=== PATIENT | female | born 1955 | race Caucasian/White ===

== ENCOUNTER → 2023-07-07 13:54 | Outpatient (BNVA) | payer OTHER, SELFPAY | PROVIDERS: PCP Internal Medicine; Visit Provider Surgery ==

== ENCOUNTER 2023-07-20 08:30 | Outpatient (AMB) | payer OTHER, SELFPAY ==
--- NOTE | 2023-07-20 12:29 | A.OFFVIS_ITS ---
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 BMI 37.5 Allergies morphine Allergy (Intermediate, Verified 07/20/23 12:29) Hallucinations Sulfa (Sulfonamide Antibiotics) Adverse Reaction (Severe, Verified 07/20/23 12:29) Anaphylaxis ezetimibe Adverse Reaction (Intermediate, Verified 07/20/23 12:29) Diarrhea Medication List - Last Reconciled 07/20/23 by Oskar Sharpe MD albuterol sulfate 90 mcg/actuation inhalation albuterol sulfate mg inhalation atorvastatin 40 mg PO DAILY bupropion HCl 150 mg PO QAM cyanocobalamin (vitamin B-12) 5,000 mcg PO DAILY diclofenac-misoprostol 50-200 mg-mcg tabs PO ferrous sulfate (FeroSul) 325 mg PO DAILY lamotrigine 200 mg PO DAILY lamotrigine 100 mg PO DAILY levothyroxine 50 mcg PO DAILY methotrexate sodium mg PO metoprolol tartrate 25 mg PO DAILY multivitamin 1 tab PO DAILY omeprazole 40 mg PO BID pregabalin 150 mg PO BID quetiapine mg PO HPI 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 BMI 37.5 HPI Details Start time: 12.24pm, End time: 1.24pm ?I spent 45 minutes speaking with the patient on the phone plus an additional 15 minutes reviewing and updating records for a total of 60 minutes HPI Comments History of Present Illness Details Previous weight loss efforts: LSG (Heighest: 297lbs, lowest: 172lbs) Wakes up: 6am, Sleeps: 10pm Breakfast: 7am (toast and eggs and avocado) Lunch: 1pm (salad with tuna, soups, Dinner: 7pm (meatloaf, pasta) Snacks: 10am (crackers and cheese), 3pm (peanut butter with celery, cheese and crackers), 9pm (saltine crackers) Exercise: has marcello Fluids: Coffee espresso x3/d (heavy cream), tea rare(2-3 cups at night), soda: none, juice: none, ETOH: rare PFSH Medical History (Updated 07/20/23 @ 13:07 by Oskar Sharpe MD) Neuropathy Hypothyroidism GERD (gastroesophageal reflux disease) Anxiety Depression Asthma Psoriatic arthritis Hyperlipidemia Hypertension Sleep apnea treated with continuous positive airway pressure (CPAP) Obesity Surgical History (Updated 07/19/23 @ 08:37 by Olga Wang [facility]) Hx of vitrectomy Hx of blepharoplasty Hx of abdominal surgery Hx of breast reduction, elective Hx of spinal surgery History of gastric surgery Hx of discectomy Hx of hysterectomy, total History of lumpectomy History of bladder suspension procedure Hx of section History of facial surgery Social History (Updated 07/19/23 @ 08:51 by Olga Wang CMA) Patient Tobacco Use Status: Never used Tobacco Assessment & Plan Assessment & Plan (1) Obesity: Code(s): E66.9 - Obesity, unspecified Qualifiers: Obesity type: due to excess calories Obesity classification: adult class 2 (BMI 35 - 39.9) Serious obesity comorbidity presence: with serious comorbidity Body mass index: BMI 37.0-37.9 Qualified Code(s): E66.01 - Morbid (severe) obesity due to excess calories; Z68.37 - Body mass index [BMI] 37.0- 37.9, adult Plan: 1.? Plan for lap sleeve gastrectomy. If diaphragmatic or ventral hernias are present at time of surgery, these will be repaired laparoscopically as well. Risks and complications were discussed in detail including possible conversion to an open procedure, anastomotic leak, bleeding requiring transfusion, small bowel obstruction, , DVT and pulmonary embolism, cardiac, or pulmonary complications, as mcc complications such as anastomotic ulcer, insufficient weight loss and vitamin deficiencies. I emphasized the importance of close follow-up, adherence to instructions and good communication. 2. Nutritional counseling. Start with 2 CELEBRATE REBUILD protein (buy at [facility] [employer] [facility]) shakes (ONE scoop EACH in 8oz low fat unsweetened almond milk each) at 7am-9am and 10am-12pm, 2 protein bars (CELEBRATE protein bars, buy at [facility] [employer]) at 1pm-3pm, 4pm-6pm, dinner at 7pm (6 forks of protein and 6 forks of salad/vegetables). If you feel hungry after dinner, please do another HALF protein bar after dinner at 9pm-10pm. So you do 2 protein shakes, 2-2.5 protein bars and one meal per day. Meal to include lean meat (beef, fish, pork, turkey, chicken), or maltese yogurt, or egg whites, or beans with a salad with olive oil and fruits (berries, pears, apples, kiwi). Avoid salt, breads, potatoes, rice, pasta, desserts. 3. Each shake would be drunk slowly, like coffee in a period of 2 hours. 4. Cut each bar in 4 pieces and eat each piece in 30min ?to make each bar last 2 hours. 5. I emphasized the importance of measuring accurately the food portion and measure it when serving the food in plate 6. The meal portions include 6 full-size forks of meat and 6 full-size forks of salad. You always eat the meat portion but you can replace up to 3 forks for salad/vegetables with rice, potatoes or pasta, or a fruit ?if you like. The less you do it the better weight loss will be. 7. One full-size fork is what it can be scooped on the fork without falling aside and not what can be bit with the fork. Use regular forks like those you find in a typical restaurant. 8.? Please send me weight measurements as soon as possible and then once a week. Always include your diet and exercise plan. 9. Start using the [employer] aerobic exercise machine, tracking calories with a goal of 300 calories per day, daily. Goal is to burn 2000 calories per week on exercise, which means either 300 calories daily, or 400 calories 5 days per week, or 500 calories 4 days per week, or 650 calories 3 days per week. You can also split the session in 2 sessions of 150 calories per session, twice per day. 10. Goal is to lose at least 1.5-2lbs per week 11. Goal to lose 10% of your weight before surgery, which is about 24lbs. Ultimate weight goal: 215lbs before surgery 12. Please follow the diet plan exactly without any change. If you don't like something about the plan or you feel hungry you need to communicate with me so I can help you revise the plan. You should not change the plan yourself. Orders: Orders Insulin Today E03.9 - Hypothyroidism, unspecified, E66.9 - Obesity, unspecified, E78.5 - Hyperlipidemia, unspecified, I10 - Essential (primary) hypertension, J45.909 - Unspecified asthma, uncomplicated, K21.9 - Gastro-esophageal reflux disease without esophagitis, L40.50 - Arthropathic psoriasis, unspecified, Z68.37 - Body mass index [BMI] 37.0-37.9, adult IRON PROFILE Today E03.9 - Hypothyroidism, unspecified, E66.9 - Obesity, unspecified, E78.5 - Hyperlipidemia, unspecified, I10 - Essential (primary) hypertension, J45.909 - Unspecified asthma, uncomplicated, K21.9 - Gastro- esophageal reflux disease without esophagitis, L40.50 - Arthropathic psoriasis, unspecified, Z68.37 - Body mass index [BMI] 37.0-37.9, adult Zinc Today E03.9 - Hypothyroidism, unspecified, E66.9 - Obesity, unspecified, E78.5 - Hyperlipidemia, unspecified, I10 - Essential (primary) hypertension, J45.909 - Unspecified asthma, uncomplicated, K21.9 - Gastro-esophageal reflux disease without esophagitis, L40.50 - Arthropathic psoriasis, unspecified, Z68.37 - Body mass index [BMI] 37.0-37.9, adult C Reactive Protein Today E03.9 - Hypothyroidism, unspecified, E66.9 - Obesity, unspecified, E78.5 - Hyperlipidemia, unspecified, I10 - Essential (primary) hypertension, J45.909 - Unspecified asthma, uncomplicated, K21.9 - Gastro- esophageal reflux disease without esophagitis, L40.50 - Arthropathic psoriasis, unspecified, Z68.37 - Body mass index [BMI] 37.0-37.9, adult TSH reflex Free T4 Today E03.9 - Hypothyroidism, unspecified, E66.9 - Obesity, unspecified, E78.5 - Hyperlipidemia, unspecified, I10 - Essential (primary) hypertension, J45.909 - Unspecified asthma, uncomplicated, K21.9 - Gastro- esophageal reflux disease without esophagitis, L40.50 - Arthropathic psoriasis, unspecified, Z68.37 - Body mass index [BMI] 37.0-37.9, adult Vitamin D 25-OH Total Today E03.9 - Hypothyroidism, unspecified, E66.9 - Obesity, unspecified, E78.5 - Hyperlipidemia, unspecified, I10 - Essential (primary) hypertension, J45.909 - Unspecified asthma, uncomplicated, K21.9 - Gastro-esophageal reflux disease without esophagitis, L40.50 - Arthropathic psoriasis, unspecified, Z68.37 - Body mass index [BMI] 37.0-37.9, adult US abdomen comp w elastography Today E03.9 - Hypothyroidism, unspecified, E66.9 - Obesity, unspecified, E78.5 - Hyperlipidemia, unspecified, I10 - Essential (primary) hypertension, J45.909 - Unspecified asthma, uncomplicated, K21.9 - Gastro-esophageal reflux disease without esophagitis, L40.50 - Arthropathic psoriasis, unspecified, Z68.37 - Body mass index [BMI] 37.0-37.9, adult XR chest 2V Today E03.9 - Hypothyroidism, unspecified, E66.9 - Obesity, unspecified, E78.5 - Hyperlipidemia, unspecified, I10 - Essential (primary) hypertension, J45.909 - Unspecified asthma, uncomplicated, K21.9 - Gastro- esophageal reflux disease without esophagitis, L40.50 - Arthropathic psoriasis, unspecified, Z68.37 - Body mass index [BMI] 37.0-37.9, adult ECG 12 lead EKG Today E03.9 - Hypothyroidism, unspecified, E66.9 - Obesity, unspecified, E78.5 - Hyperlipidemia, unspecified, I10 - Essential (primary) hypertension, J45.909 - Unspecified asthma, uncomplicated, K21.9 - Gastro- esophageal reflux disease without esophagitis, L40.50 - Arthropathic psoriasis, unspecified, Z68.37 - Body mass index [BMI] 37.0-37.9, adult FL upper GI w air Today E03.9 - Hypothyroidism, unspecified, E66.9 - Obesity, unspecified, E78.5 - Hyperlipidemia, unspecified, I10 - Essential (primary) hypertension, J45.909 - Unspecified asthma, uncomplicated, K21.9 - Gastro- esophageal reflux disease without esophagitis, L40.50 - Arthropathic psoriasis, unspecified, Z68.37 - Body mass index [BMI] 37.0-37.9, adult Hemoglobin A1c Today E03.9 - Hypothyroidism, unspecified, E66.9 - Obesity, unspecified, E78.5 - Hyperlipidemia, unspecified, I10 - Essential (primary) hyp ertension, J45.909 - Unspecified asthma, uncomplicated, K21.9 - Gastro- esophageal reflux disease without esophagitis, L40.50 - Arthropathic psoriasis, unspecified, Z68.37 - Body mass index [BMI] 37.0-37.9, adult H Pylori Breath Test Today E03.9 - Hypothyroidism, unspecified, E66.9 - Obesity, unspecified, E78.5 - Hyperlipidemia, unspecified, I10 - Essential (primary) hypertension, J45.909 - Unspecified asthma, uncomplicated, K21.9 - Gastro- esophageal reflux disease without esophagitis, L40.50 - Arthropathic psoriasis, unspecified, Z68.37 - Body mass index [BMI] 37.0-37.9, adult Complete Blood Count Auto Diff Today E03.9 - Hypothyroidism, unspecified, E66.9 - Obesity, unspecified, E78.5 - Hyperlipidemia, unspecified, I10 - Essential (primary) hypertension, J45.909 - Unspecified asthma, uncomplicated, K21.9 - Gastro-esophageal reflux disease without esophagitis, L40.50 - Arthropathic psoriasis, unspecified, Z68.37 - Body mass index [BMI] 37.0-37.9, adult Lipid Panel Today E03.9 - Hypothyroidism, unspecified, E66.9 - Obesity, unspecified, E78.5 - Hyperlipidemia, unspecified, I10 - Essential (primary) hypertension, J45.909 - Unspecified asthma, uncomplicated, K21.9 - Gastro- esophageal reflux disease without esophagitis, L40.50 - Arthropathic psoriasis, unspecified, Z68.37 - Body mass index [BMI] 37.0-37.9, adult Comprehensive Met. Panel Today E03.9 - Hypothyroidism, unspecified, E66.9 - Obesity, unspecified, E78.5 - Hyperlipidemia, unspecified, I10 - Essential (primary) hypertension, J45.909 - Unspecified asthma, uncomplicated, K21.9 - Gastro-esophageal reflux disease without esophagitis, L40.50 - Arthropathic psoriasis, unspecified, Z68.37 - Body mass index [BMI] 37.0-37.9, adult Vitamin B12 and Folate Today E03.9 - Hypothyroidism, unspecified, E66.9 - Obesity, unspecified, E78.5 - Hyperlipidemia, unspecified, I10 - Essential (primary) hypertension, J45.909 - Unspecified asthma, uncomplicated, K21.9 - Gastro-esophageal reflux disease without esophagitis, L40.50 - Arthropathic psoriasis, unspecified, Z68.37 - Body mass index [BMI] 37.0-37.9, adult Vitamin B1 Today E03.9 - Hypothyroidism, unspecified, E66.9 - Obesity, unspecified, E78.5 - Hyperlipidemia, unspecified, I10 - Essential (primary) hypertension, J45.909 - Unspecified asthma, uncomplicated, K21.9 - Gastro- esophageal reflux disease without esophagitis, L40.50 - Arthropathic psoriasis, unspecified, Z68.37 - Body mass index [BMI] 37.0-37.9, adult Vitamin A Today E03.9 - Hypothyroidism, unspecified, E66.9 - Obesity, unspecified, E78.5 - Hyperlipidemia, unspecified, I10 - Essential (primary) hypertension, J45.909 - Unspecified asthma, uncomplicated, K21.9 - Gastro- esophageal reflux disease without esophagitis, L40.50 - Arthropathic psoriasis, unspecified, Z68.37 - Body mass index [BMI] 37.0-37.9, adult Ferritin Today E03.9 - Hypothyroidism, unspecified, E66.9 - Obesity, unspecified, E78.5 - Hyperlipidemia, unspecified, I10 - Essential (primary) hypertension, J45.909 - Unspecified asthma, uncomplicated, K21.9 - Gastro- esophageal reflux disease without esophagitis, L40.50 - Arthropathic psoriasis, unspecified, Z68.37 - Body mass index [BMI] 37.0-37.9, adult Referrals Behavioral Health Referral E03.9 - Hypothyroidism, unspecified, E66.9 - Obesity, unspecified, E78.5 - Hyperlipidemia, unspecified, I10 - Essential (primary) hypertension, J45.909 - Unspecified asthma, uncomplicated, K21.9 - Gastro-esophageal reflux disease without esophagitis, L40.50 - Arthropathic psoriasis, unspecified, Z68.37 - Body mass index [BMI] 37.0-37.9, adult Nutrition/Dietitian Referral E03.9 - Hypothyroidism, unspecified, E66.9 - Obesity, unspecified, E78.5 - Hyperlipidemia, unspecified, I10 - Essential (primary) hypertension, J45.909 - Unspecified asthma, uncomplicated, K21.9 - Gastro-esophageal reflux disease without esophagitis, L40.50 - Arthropathic psoriasis, unspecified, Z68.37 - Body mass index [BMI] 37.0-37.9, adult Telehealth Telehealth Location of provider rendering services: practice address Location of patient: address on file Patient Identification confirmed using: Name, : Yes Telehealth method: voice only Patient verbally consented to treatment: Yes Patient verbally consented to billing insurance company: Yes Patient informed of any privacy concerns related to visit: Yes Minutes spent on Phone/Video with Pt.: 60 Coding Level of Care Code Tele [facility] Pt Level 5 (44656) Diagnoses Class 2 severe obesity due to excess calories with serious comorbidity and body mass index (BMI) of 37.0 to 37.9 in adult E66.01; Z68.37 Obesity type: due to excess calories Obesity classification: adult class 2 (BMI 35 - 39.9) Serious obesity comorbidity presence: with serious comorbidity Body mass index: BMI 37.0-37.9 Time Spent (min) 60
[2023-07-20 12:56] VITALS: BMI 37.4
== END 2023-07-20 13:26 | disposition home or self-care (01) ==
LOC: HO.HBS 08:30
PROVIDERS: PCP Internal Medicine; Visit Provider Surgery
DX: E66.01 Morbid (severe) obesity due to excess calories (principal); Z68.37 Body mass index [BMI] 37.0-37.9, adult; Z90.3 Acquired absence of stomach [part of]; Z98.84 Bariatric surgery status
CPT/HCPCS: 99205

== ENCOUNTER → 2023-07-20 08:30 | Outpatient (BNVA) | payer OTHER, SELFPAY | PROVIDERS: PCP Internal Medicine; Visit Provider Surgery ==

== ENCOUNTER 2023-07-21 11:15 | Outpatient (REF) | payer OTHER, SELFPAY ==
--- NOTE | ~2023-07-21 | XR_ITS ---
EXAMINATION: XR CHEST CLINICAL INFORMATION: Obesity, unspecified. COMPARISON: None available. TECHNIQUE: Two views of the chest were obtained. FINDINGS: Surgical clips in the left axilla. Multiple densities, possibly sclerotic bony lesions versus soft tissue calcifications, project over the partially imaged right humeral head. Dedicated views of the right shoulder with attention to the humeral head are recommended for further evaluation. There is no gross pneumothorax. Cervical plate and screws incompletely imaged. Mild right costophrenic angle blunting may represent a small pleural effusion versus pleural thickening. Right perihilar and infrahilar linear and patchy opacities may represent atelectasis/scar, although an infectious/inflammatory process could also be considered in the appropriate clinical setting. XR/XR chest 2V IMPRESSION: 1. Mild right costophrenic angle blunting may represent a small pleural effusion versus pleural thickening. Right perihilar and infrahilar linear and patchy opacities may represent atelectasis/scar, although an infectious/inflammatory process could also be considered in the appropriate clinical setting. 2. Multiple densities, possibly sclerotic bony lesions versus soft tissue calcifications, project over the partially imaged right humeral head. Dedicated views of the right shoulder with attention to the humeral head are recommended for further evaluation. This study was presented today, July 25, 2023, for interpretation. PSA staff will provide results to referring provider at this time.
--- NOTE | 2023-07-21 11:42 | ECG_ITS ---
Test Reason : obesity Blood Pressure : / mmHG Vent. Rate : 065 BPM Atrial Rate : 065 BPM P-R Int : 186 ms QRS Dur : 100 ms QT Int : 402 ms P-R-T Axes : 048 005 014 degrees QTc Int : 418 ms Normal sinus rhythm Normal ECG No previous ECGs available Referred By: Oskar Sharpe Electronically Signed By:Kingsley Davis
[2023-07-21 11:43] LABS: MANUAL DIFF FLAG NO
[2023-07-21 12:46] LABS: Basophils Percent Auto 0.4 % (0-2); Eosinophils Absolute Auto 0.1 X10*3/uL (0.0-0.4); Eosinophils Percent Auto 1.6 % (0-4); Hematocrit 36.3 % (37.0-47.0); Hemoglobin 12.1 g/dl (12.0-16.0); Imm Gran Abs Auto 0.02 X10*3/uL (0.00-0.03); Imm Gran Pct Auto 0.4 % (0.0-0.4); Lymphocytes Absolute Auto 1.8 X10*3/uL (1.2-4.9); Lymphocytes Percent Auto 31.6 % (20-40); Mean Corpuscular HGB Conc 33.3 g/dl (31.0-35.0); Mean Corpuscular Volume 98.9 fL (80.0-98.0); Mean Platelet Volume 10.7 fL (9.4-12.3); Monocytes Absolute Auto 0.6 X10*3/uL (0.1-1.2); Monocytes Percent Auto 10.9 % (2-11); Neutrophils Absolute Auto 3.1 x10*3/uL (2.0-8.3); Neutrophils Percent Auto 55.1 % (45-73); Platelet Count 175 X10*3/uL (160-400); Red Blood Count 3.67 X10*6/uL (4.20-5.50); Red Cell Distribution Width 14.2 % (11.0-16.0); White Blood Count 5.7 X10*3/uL (4.8-10.8)
[2023-07-21 12:53] LABS: Estimated Average Glucose 128 mg/dL; Hemoglobin A1c % 6.1 % (<6.0)
[2023-07-21 14:07] LABS: Alanine Aminotransferase 28 U/L (0-31); Albumin Level 4.1 g/dL (3.5-5.0); Alkaline Phosphatase 65 U/L (39-117); Anion Gap 13 (12-20); Aspartate Amino Transferase 23 U/L (5-31); Bilirubin Total 0.5 mg/dL (0.0-1.0); Blood Urea Nitrogen 18 mg/dL (9-16); Carbon Dioxide 23 mmol/L (22-29); Chloride 107 mmol/L (96-108); Cholesterol 154 mg/dL (<200); Estimated Glomerular Filt Rate > 60; Glucose Random 136 mg/dL (60-115); HDL Cholesterol 42 mg/dL (>40); Iron 50 mcg/dL (30-160); LDL Cholesterol Calculated 92 mg/dL (<100); Percent Iron Saturation 18 % (15-50); Potassium 3.6 mmol/L (3.3-5.1); Sodium 139 mmol/L (135-145); Total Iron Binding Capacity 283 mcg/dL (228-428); Total Protein 6.6 g/dL (6.5-8.0); Triglycerides 101 mg/dL (<150); Unsaturated Iron Binding 233 ug/dL
[2023-07-21 14:25] LABS: Ferritin 125 ng/mL (10-250); Insulin 25 uU/mL (2-29); TSH reflex Free T4 1.29 uIU/mL (0.32-4.0); Vitamin D 25-OH Total 59.2 ng/mL (>30)
[2023-07-21 14:37] LABS: Vitamin B12 367 pg/mL (200-900)
[2023-07-25 00:22] LABS: Zinc 51 mcg/dL (60-130)
[2023-07-27 01:04] LABS: Vitamin A 43 mcg/dL (38-98)
[2023-07-28 06:17] LABS: Vitamin B1 17 nmol/L (8-30)
== END 2023-07-21 11:16 | disposition home or self-care (01) ==
LOC: HO.XRAY 11:15
PROVIDERS: PCP Internal Medicine; Visit Provider Surgery
DX: E66.9 Obesity, unspecified (principal); Z68.37 Body mass index [BMI] 37.0-37.9, adult; I10 Essential (primary) hypertension; L40.50 Arthropathic psoriasis, unspecified; J45.909 Unspecified asthma, uncomplicated; E78.5 Hyperlipidemia, unspecified; K21.9 Gastro-esophageal reflux disease without esophagitis; E03.9 Hypothyroidism, unspecified
CPT/HCPCS: 36415; 71046; 80053; 80061; 82306; 82607; 82728; 82746; 83036; 83525; 83540; 84425; 84443; 84590; 84630; 85025; 86140; 93005

== ENCOUNTER → 2023-07-21 11:42 | Outpatient (BNV) | payer OTHER, SELFPAY | PROVIDERS: PCP Internal Medicine; Visit Provider Internal Medicine Cardiovascular Disease | DX: E66.9 Obesity, unspecified (principal) | CPT/HCPCS: 93010 ==

== ENCOUNTER 2023-07-31 09:43 | Outpatient (REF) | payer OTHER, SELFPAY ==
--- NOTE | ~2023-07-31 | XR_ITS ---
EXAMINATION: XR SHOULDER, RIGHT CLINICAL INFORMATION: Pain in right shoulder COMPARISON: None available. TECHNIQUE: AP external rotation, Grashey, scapular Y, and axillary views of the right shoulder. FINDINGS: There is no evidence of fracture or dislocation. The right glenohumeral joint and acromioclavicular joints unremarkable. There are few small circumscribed calcifications in the soft tissues adjacent to the greater tuberosity most likely in the supraspinatus tendon suggestive for tendinopathy. XR/XR shoulder RT min 2V IMPRESSION: Calcified tendinopathy in the right shoulder
== END 2023-07-31 09:44 | disposition home or self-care (01) ==
LOC: HO.XRAY 09:43
PROVIDERS: PCP Internal Medicine; Visit Provider Physician Assistant Surgical
DX: M25.511 Pain in right shoulder (principal)
CPT/HCPCS: 73030

== ENCOUNTER 2023-08-04 09:24 | Outpatient (AMB) | payer OTHER, SELFPAY ==
--- NOTE | 2023-08-04 09:16 | MHC.AMNUTRGE ---
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 [facility] online classes: completed, scored well, reviewed. Previous weight loss methods attempted LSG (Heighest: 297lbs, lowest: 172lbs) Has sleeve in 2012 in [place]. then got in 2016, moved to [place] in 2019, got injured, then covid and lost control of eating habits. Has lost over 100# about 4 times in her life Dietary counseling reduction Who buys your food self Who prepares/cooks your food self Meal frequency regular: breakfast, lunch, dinner and snacks Lifestyle Emotional Eating Reports stress, depression and anxiety Eating out 4 or more times/week Food frequency Dairy: daily, Fruit: daily, Vegetables: daily, Grains/pasta/breads/cereal (carbs): daily, Meats/poultry/fish (protein): daily, Meat substitutes/nuts/seeds/legumes: daily, Processed foods/meats: daily, Restaurants/fast foods: daily, Desserts/sweets: daily and Alcohol: several times weekly (wine, beer, enjoyed trying new drinks) Diagnosis Nutrition problem #1 overweight/obesity As related to (etiology) #1 excess energy intake and physical inactivity As evidenced by (sign/symptom) #1 high BMI Monitoring/Goals Nutrition problem monitoring total energy intake, level of knowledge/skill, total PRO intake, total CHO intake and weight Outcome progress progressing Learning/Education Readiness to learn excellent Stages of change action Educational materials provided Yes Most Recent Diabetes Results: Cholesterol 154 mg/dL (<200) 07/21/23 HDL Cholesterol 42 mg/dL (>40) 07/21/23 Triglycerides 101 mg/dL (<150) 07/21/23 Creatinine 0.75 mg/dL (0.5-1.4) 07/21/23 Blood Urea Nitrogen 18 mg/dL (9-16) H 07/21/23 Sodium 139 mmol/L (135-145) 07/21/23 Potassium 3.6 mmol/L (3.3-5.1) 07/21/23 Chloride 107 mmol/L (96-108) 07/21/23 Carbon Dioxide 23 mmol/L (22-29) 07/21/23 Calcium 9.0 mg/dL (8.4-10.2) 07/21/23 AST 23 U/L (5-31) 07/21/23 ALT 28 U/L (0-31) 07/21/23 Total Protein 6.6 g/dL (6.5-8.0) 07/21/23 Albumin 4.1 g/dL (3.5-5.0) 07/21/23 [facility] Medical History (Updated 07/31/23 @ 08:38 by HORACIO Berry) Neuropathy Hypothyroidism GERD (gastroesophageal reflux disease) Anxiety Depression Asthma Psoriatic arthritis Hyperlipidemia Hypertension Sleep apnea treated with continuous positive airway pressure (CPAP) Obesity Surgical History (Updated 07/19/23 @ 08:37 by Olga Wang CMA) Hx of vitrectomy Hx of blepharoplasty Hx of abdominal surgery Hx of breast reduction, elective Hx of spinal surgery History of gastric surgery Hx of discectomy Hx of hysterectomy, total History of lumpectomy History of bladder suspension procedure Hx of section History of facial surgery Social History (Updated 07/19/23 @ 08:51 by Olga Wang CMA) Patient Tobacco Use Status: Never used Tobacco Assessment & Plan Assessment & Plan (1) Obesity (BMI 30-39.9): Code(s): E66.9 - Obesity, unspecified Plan Patient is cleared from a nutrition standpoint for bariatric surgery. Educational requirements have been completed. Reviewed vitamin supplementation and commitment to protein shake for several months post surgery. Encouraged communication with office as needed Telehealth Telehealth Location of provider rendering services: practice address Location of patient: address on file Patient Identification confirmed using: Name, : Yes Telehealth method: voice only Patient verbally consented to treatment: Yes Patient verbally consented to billing insurance company: Yes Patient informed of any privacy concerns related to visit: Yes Minutes spent on Phone/Video with Pt.: 35 Coding Level of Care Code Nutr Indiv Intake (50435) Diagnoses Obesity (BMI 30-39.9) E66.9 Time Spent (min) 35
== END 2023-08-04 09:52 | disposition home or self-care (01) ==
LOC: HO.HBS 09:24
PROVIDERS: PCP Internal Medicine; Visit Provider Dietitian, Registered
DX: E66.9 Obesity, unspecified (principal)

== ENCOUNTER → 2023-08-04 09:24 | Outpatient (BNVA) | payer OTHER, SELFPAY | PROVIDERS: PCP Internal Medicine; Visit Provider Dietitian, Registered | DX: E66.9 Obesity, unspecified (principal); Z71.3 Dietary counseling and surveillance | CPT/HCPCS: 97802 ==

== ENCOUNTER 2023-08-07 15:54 | Outpatient (AMB) | payer OTHER, SELFPAY ==
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
== END 2023-08-07 16:30 ==
LOC: HO.HBST 15:54
PROVIDERS: PCP Internal Medicine; Visit Provider Counselor Mental Health
DX: F31.30 Bipolar disorder, current episode depressed, mild or moderate severity, unspecified (principal); E66.01 Morbid (severe) obesity due to excess calories; Z68.37 Body mass index [BMI] 37.0-37.9, adult
CPT/HCPCS: 90791

== ENCOUNTER → 2023-08-07 15:54 | Outpatient (BNVA) | payer OTHER, SELFPAY | PROVIDERS: PCP Internal Medicine; Visit Provider Counselor Mental Health ==

== ENCOUNTER 2023-08-11 07:36 | Outpatient (AMB) | payer OTHER, SELFPAY ==
--- NOTE | 2023-08-11 13:41 | A.OFFVIS_ITS ---
Intake VS Expanded 08/11/23 13:46 Height 5 ft 7 in Weight 225 lb 8 oz BMI 35.3 Body Fat % 47.6 Body Fat Mass 107.4 Fat Free Mass 118.4 Visceral Fat Rating 17 Body Water % 36 Body Water Mass 81.2 Basal Metabolic Rate/Score 1,530 Intake Visit Reasons: TV Follow Up SWL - 1ST Allergies morphine Allergy (Intermediate, Verified 07/20/23 12:29) Hallucinations Sulfa (Sulfonamide Antibiotics) Adverse Reaction (Severe, Verified 07/20/23 12:29) Anaphylaxis ezetimibe Adverse Reaction (Intermediate, Verified 07/20/23 12:29) Diarrhea HPI TV Follow Up SWL - 1ST HPI Details Start time: 1.43pm, End time: 2.03pm ?I spent 15 minutes speaking with the patient on the phone plus an additional 5 minutes reviewing and updating records for a total of 20 minutes HPI Comments History of Present Illness Details Overall weight loss: 13.2lbs, or 5.52% TBWL Is doing 2 Celebrate Rebuild protein shakes (1 scoop each in almond milk), 2 Celebrate protein bars and one meal (6 forks of protein and 6 forks of salad or vegetables). Exercise: doing physical therapy PFSH Medical History (Updated 08/07/23 @ 16:26 by Samanta Gordon) Neuropathy Hypothyroidism GERD (gastroesophageal reflux disease) Anxiety Depression Asthma Psoriatic arthritis Hyperlipidemia Hypertension Sleep apnea treated with continuous positive airway pressure (CPAP) Obesity Surgical History (Updated 07/19/23 @ 08:37 by Olga Wang [employer]) Hx of vitrectomy Hx of blepharoplasty Hx of abdominal surgery Hx of breast reduction, elective Hx of spinal surgery History of gastric surgery Hx of discectomy Hx of hysterectomy, total History of lumpectomy History of bladder suspension procedure Hx of section History of facial surgery Social History (Updated 07/19/23 @ 08:51 by Olga Wang CMA) Patient Tobacco Use Status: Never used Tobacco Assessment & Plan Assessment & Plan (1) Obesity: Code(s): E66.9 - Obesity, unspecified Qualifiers: Obesity type: due to excess calories Obesity classification: adult class 2 (BMI 35 - 39.9) Serious obesity comorbidity presence: with serious comorbidity Body mass index: BMI 37.0-37.9 Qualified Code(s): E66.01 - Morbid (severe) obesity due to excess calories; Z68.37 - Body mass index [BMI] 37.0- 37.9, adult Plan: 1. Continue same nutritional plan of 2 Celebrate Rebuild protein shakes (1 scoop each in almond milk), 2 Celebrate protein bars and one meal (6 forks of protein and 6 forks of salad or vegetables). 2. You may change the order of shakes and bars if necessary 3. Continue physical therapy and stair exercises 4. The best choice would be to purchase a stationary bike at home that can track calories. Let me know if you do so I can give you an exercise plan. 5. Continue to send me weight measurements weekly on Sundays Telehealth Telehealth Location of provider rendering services: practice address Location of patient: address on file Patient Identification confirmed using: Name, : Yes Telehealth method: voice only Patient verbally consented to treatment: Yes Patient verbally consented to billing insurance company: Yes Patient informed of any privacy concerns related to visit: Yes Minutes spent on Phone/Video with Pt.: 20 Coding Level of Care Code Tele Est Pt Level 3 (50327) Diagnoses Class 2 severe obesity due to excess calories with serious comorbidity and body mass index (BMI) of 37.0 to 37.9 in adult E66.01; Z68.37 Obesity type: due to excess calories Obesity classification: adult class 2 (BMI 35 - 39.9) Serious obesity comorbidity presence: with serious comorbidity Body mass index: BMI 37.0-37.9 Time Spent (min) 20
[2023-08-11 13:46] VITALS: BMI 35.3
== END 2023-08-11 14:04 | disposition home or self-care (01) ==
LOC: HO.HBS 07:36
PROVIDERS: PCP Internal Medicine; Visit Provider Surgery
DX: E66.01 Morbid (severe) obesity due to excess calories (principal); Z68.37 Body mass index [BMI] 37.0-37.9, adult
CPT/HCPCS: 99213

== ENCOUNTER → 2023-08-11 07:36 | Outpatient (BNVA) | payer OTHER, SELFPAY | PROVIDERS: PCP Internal Medicine; Visit Provider Surgery ==

== ENCOUNTER 2023-08-23 07:02 | Day surgery (SDC) | payer OTHER, SELFPAY ==
[2023-08-18 17:50] VITALS: BMI 35.5
--- NOTE | 2023-08-18 17:58 | PC.NURSE ---
This nurse spoke to patient for pretesting questions. 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 Patient states she was recently hospitalized at [facility] from 08/13 to 08/15 due to low BP and PNA. BP was 70's/40's, currently 130's/60's. Denies sepsis. Discharged on abx Levaquin PO which she is finishing this Monday. Upon discharge, hospital discontinued her losartan and methotrexate. States her current respiratory status is fine. PAT nurses and anesthesia preop made aware.
--- NOTE | 2023-08-21 13:16 | HO.ANESPROP2 ---
Documented by User: Rhea Sarmiento NP 08/22/23 08:32 HPI - Anesthesia Eval Consult details Narrative: 68yo F for Upper Endoscopy [facility] admit 08/13-08/16/23 with pna/sepsis/DIANNE/hypotensive. IV abx/ fluid resus while inpt and PO upon discharge. Pt reports symptoms resolved at time of RN phone assessment. Plan to repeat CXR before EGD. Surgical office aware and coordinating [facility] Active Problems Active Problems: All Active Problems Bipolar disorder, current episode depressed, mild or moderate severity, unspecified (Acute) Right shoulder pain (Acute) Zinc deficiency (Acute) BMI 37.0-37.9, adult (Acute) Neuropathy (Acute) Hypothyroidism (Acute) GERD (gastroesophageal reflux disease) (Acute) Anxiety (Acute) Depression (Acute) Asthma (Acute) Psoriatic arthritis (Acute) Hyperlipidemia (Acute) Hypertension (Acute) Sleep apnea treated with continuous positive airway pressure (CPAP) (Acute) Obesity (Acute) Past Medical History Medical History Peripheral neuropathy Sleep apnea Thyroid disease Immunocompromised state due to drug therapy Dyslipidemia Diabetes Bipolar 2 disorder Bipolar 1 disorder Neuropathy Hypothyroidism GERD (gastroesophageal reflux disease) Anxiety Depression Asthma Psoriatic arthritis Hyperlipidemia Hypertension Sleep apnea treated with continuous positive airway pressure (CPAP) Obesity Surgical History Surgical History Hx of vitrectomy Hx of blepharoplasty Hx of abdominal surgery Hx of breast reduction, elective Hx of spinal surgery History of gastric surgery Hx of discectomy Hx of hysterectomy, total History of lumpectomy History of bladder suspension procedure Hx of section History of facial surgery Social History Social History (Updated 07/19/23 @ 08:51 by Olga Wang CMA) Patient Tobacco Use Status: Former Tobacco user Quit Date: 1988 Tobacco use type: Cigarette Years Smoked: 11 Smoked in Last 30 Days: No Use of substances other than those prescribed or required for medical reasons: No Are you DNR?: No Advance Directives: No Advance Directives Information Provided: Yes Advance Directives on File: No Advance Directives Date on File: 08/18/23 Recently lost weight without trying: No How much weight loss: Not applicable Eating poorly because of decreased appetite: No Nutrition screen score: 0 Nutrition Risks: No Nutritional Risk Meds Allergies Allergy/AdvReac Type Severity Reaction Status Date / Time morphine Allergy Intermediate Hallucinati Verified 08/23/23 06:52 ons Sulfa (Sulfonamide AdvReac Severe Anaphylaxis Verified 08/23/23 06:52 Antibiotics) ezetimibe AdvReac Intermediate Diarrhea Verified 08/23/23 06:52 Home Medications ?Medication ?Instructions ?Recorded ?Confirmed ?Last Taken ?Type albuterol sulfate 2.5 mg/3 mL mg inhalation DAILY PRN asthma 07/19/23 07/20/23 Unknown History (0.083 %) solution for nebulization albuterol sulfate 90 mcg/actuation 1 inh inhalation DAILY 07/19/23 08/18/23 Unknown History aerosol inhaler atorvastatin 40 mg tablet 40 mg PO DAILY 07/19/23 08/18/23 Unknown History bupropion HCl 150 mg 24 hr tablet, 150 mg PO QAM 07/19/23 08/18/23 Unknown History extended release cyanocobalamin (vitamin B-12) 5,000 mcg PO DAILY 07/19/23 08/18/23 Unknown History 5,000 mcg capsule diclofenac 50 mg-misoprostol 200 1 tab PO 07/19/23 07/20/23 Unknown History mcg tablet,immed.and delayed release ferrous sulfate 325 mg (65 mg 325 mg PO DAILY 07/19/23 08/23/23 08/21/23 History iron) tablet (FeroSul) lamotrigine 100 mg tablet 100 mg PO DAILY 07/19/23 08/18/23 Unknown History lamotrigine 200 mg tablet 200 mg PO DAILY 07/19/23 08/18/23 Unknown History levothyroxine 50 mcg tablet 50 mcg PO DAILY 07/19/23 08/23/23 08/23/23 History metoprolol tartrate 25 mg tablet 25 mg PO DAILY 07/19/23 08/18/23 Unknown History multivitamin 1 tab PO DAILY 07/19/23 07/20/23 Unknown History omeprazole 40 mg capsule,delayed 40 mg PO BID 07/19/23 07/20/23 Unknown History release pregabalin 150 mg capsule 150 mg PO BID 07/19/23 07/20/23 Unknown History quetiapine 25 mg tablet mg PO 07/19/23 07/20/23 Unknown History Exam Height,Weight and Vital Signs: Height 5 ft 7 in Weight 102.965 kg Pertinent Lab Results Pertinent Lab Results: Laboratory Tests 07/21/23 11:40 WBC 5.7 Hgb 12.1 Hct 36.3 L Plt Count 175 Sodium 139 Potassium 3.6 Chloride 107 Carbon Dioxide 23 BUN 18 H Creatinine 0.75 Assessment and Plan Assessment Anesthesia Assessment: Chart Reviewed Documented by User: Nataliia Moctezuma MD 08/23/23 07:13 PMF Past Medical History Medical History Peripheral neuropathy Sleep apnea Thyroid disease Immunocompromised state due to drug therapy Dyslipidemia Diabetes Bipolar 2 disorder Bipolar 1 disorder Neuropathy Hypothyroidism GERD (gastroesophageal reflux disease) Anxiety Depression Asthma Psoriatic arthritis Hyperlipidemia Hypertension Sleep apnea treated with continuous positive airway pressure (CPAP) Obesity Family History Family history of problems with anesthesia: No Surgical History Surgical History Hx of vitrectomy Hx of blepharoplasty Hx of abdominal surgery Hx of breast reduction, elective Hx of spinal surgery History of gastric surgery Hx of discectomy Hx of hysterectomy, total History of lumpectomy History of bladder suspension procedure Hx of section History of facial surgery History of Problems with Anesthesia: No Social History Social History (Updated 07/19/23 @ 08:51 by Olga Wang CMA) Patient Tobacco Use Status: Former Tobacco user Quit Date: 1988 Tobacco use type: Cigarette Years Smoked: 11 Smoked in Last 30 Days: No Use of substances other than those prescribed or required for medical reasons: No Are you DNR?: No Advance Directives: No Advance Directives Information Provided: Yes Advance Directives on File: No Advance Directives Date on File: 08/18/23 Recently lost weight without trying: No How much weight loss: Not applicable Eating poorly because of decreased appetite: No Nutrition screen score: 0 Nutrition Risks: No Nutritional Risk Meds Allergies Allergy/AdvReac Type Severity Reaction Status Date / Time morphine Allergy Intermediate Hallucinati Verified 08/23/23 06:52 ons Sulfa (Sulfonamide AdvReac Severe Anaphylaxis Verified 08/23/23 06:52 Antibiotics) ezetimibe AdvReac Intermediate Diarrhea Verified 08/23/23 06:52 Home Medications ?Medication ?Instructions ?Recorded ?Confirmed ?Last Taken ?Type albuterol sulfate 2.5 mg/3 mL mg inhalation DAILY PRN asthma 07/19/23 07/20/23 Unknown History (0.083 %) solution for nebulization albuterol sulfate 90 mcg/actuation 1 inh inhalation DAILY 07/19/23 08/18/23 Unknown History aerosol inhaler atorvastatin 40 mg tablet 40 mg PO DAILY 07/19/23 08/18/23 Unknown History bupropion HCl 150 mg 24 hr tablet, 150 mg PO QAM 07/19/23 08/18/23 Unknown History extended release cyanocobalamin (vitamin B-12) 5,000 mcg PO DAILY 07/19/23 08/18/23 Unknown History 5,000 mcg capsule diclofenac 50 mg-misoprostol 200 1 tab PO 07/19/23 07/20/23 Unknown History mcg tablet,immed.and delayed release ferrous sulfate 325 mg (65 mg 325 mg PO DAILY 07/19/23 08/23/23 08/21/23 History iron) tablet (FeroSul) lamotrigine 100 mg tablet 100 mg PO DAILY 07/19/23 08/18/23 Unknown History lamotrigine 200 mg tablet 200 mg PO DAILY 07/19/23 08/18/23 Unknown History levothyroxine 50 mcg tablet 50 mcg PO DAILY 07/19/23 08/23/23 08/23/23 History metoprolol tartrate 25 mg tablet 25 mg PO DAILY 07/19/23 08/18/23 Unknown History multivitamin 1 tab PO DAILY 07/19/23 07/20/23 Unknown History omeprazole 40 mg capsule,delayed 40 mg PO BID 07/19/23 07/20/23 Unknown History release pregabalin 150 mg capsule 150 mg PO BID 07/19/23 07/20/23 Unknown History quetiapine 25 mg tablet mg PO 07/19/23 07/20/23 Unknown History Exam Airway Mallampati Class: II TM Dist: >3cm Neck ROM: Full Heart: rrr Lungs: cta Assessment and Plan Assessment Anesthesia Assessment: Anesthesia Plan Discussed Final Anesthetic Review Family History of Problems with Anesthesia: No History of Problems with Anesthesia: No NPO: Yes ASA Class: III (4/ hospitalized 2.5 days hypotension, sepsis, treated with antibiotics, states better than baseline) Final Preanesthetic Review: No Changes in Pt Med Stat, Meds/Allgs Chart Reviewed and Consent Obtained/Reviewed Patient Risk: Intermediate Procedure Risk: Intermediate Anesthetic Plan Anesthetic Plan: MAC: Disposition: Standard PACU
[2023-08-23 06:50] VITALS: BP 117/80; PULSE 55; RESP 16; TEMP 36.3; O2SAT 97
[2023-08-23] MEDS: Albuterol Sulfate (0.083%) 2.5 MG/3 ML VIAL.NEB INHALE (07:17)
[2023-08-23 07:18] VITALS: PULSE 56; RESP 14; O2SAT 98
--- NOTE | 2023-08-23 07:34 | MHC.SHP ---
Pre-Procedural Eval Section A - 24 Hr Update-Section A only Date of Service: 08/23/23 The patient is an INPATIENT: No Changes since office visit: Yes Cold of Flu in the past 2 weeks The patient has been examined within 24 hours of the surgical procedure. The History & Physical has been completed within 30 days and I have reviewed it.: Yes Section B - Complete if H&P > 30 days Chief Complaint: Gastro-esophageal reflux disease without esophagit Relevant Family History (Specify if Yes): No Relevant Social History: None Present Medications: None Medical History: No relevant PMH History of Previous Operations: Relevant previous surgery/procedure and date(s) (laparoscopic sleeve gastrectomy) Allergies: Allergies Allergy/AdvReac Type Severity Reaction Status Date / Time morphine Allergy Intermediate Hallucinati Verified 08/23/23 06:52 ons Sulfa (Sulfonamide AdvReac Severe Anaphylaxis Verified 08/23/23 06:52 Antibiotics) ezetimibe AdvReac Intermediate Diarrhea Verified 08/23/23 06:52 Review of Systems Sugical H&P ROS: Negative: Constitution, Cardiovascular, Neurological, Psychiatric, Hem-Onc, Allergic/Immunologic, Genitourinary, Musculoskeletal, Integumentary, Endocrine and Eyes/Ears/Nose/Throat and Yes, Specify: Respiratory (recent pneumonia-resolved) and Gastrointestinal (GERD) Exam Surgical H&P Exam: Normal: HEENT, Normal: Heart, Normal: Lungs, Normal: Extremities, Normal: Abdomen, Normal: Skin and Normal: Neurological Plan Diagnosis/Plan: Unchanged (EGD to assess etiology of GERD. Risks of bleeding and perforation were discussed with the patient and she is in agreement with the plan.) I have reviewed the history and physical and performed a pertinent physical examination on my patient. No changes have occurred unless specified. Time Spent With Patient Time: Total time managing care of this patient today ____ minutes.
--- NOTE | 2023-08-23 07:36 | P.BOP_ITS ---
Brief Operative Note Date of Service: 08/30/23 Pre-op diagnosis: GERD and aspiration pneumonia Post-op diagnosis: same Procedure: PROCEDURE DATE: 05/30/2019 PREOPERATIVE DIAGNOSIS: GERD, s/p sleeve gastrectomy POSTOPERATIVE DIAGNOSIS: ?Same as above. 1) significant proximal redundancy 2) severe esophagitis PROCEDURE: [id number] with biopsies Surgeon: ?Paramjit Sharpe M.D.. Ph.D. Leasing Assistant: None ? Anesthesia: IV sedation Estimated blood loss: ?Minimal FINDINGS AND PROCEDURE: ? OPERATIVE INDICATIONS: ?The patient is a 68 year old female known to me who underwent a laparoscopic sleeve gastrectomy elsewhere. The patient had poor weight loss so far.? In addition, the patient has been complaining of severe GERD and several episodes of aspiration pneumonia. Based on this information I recommended an upper endoscopy to evaluate the patient's symptoms. Risks and complications of the surgery were discussed with the patient in advance particularly the possibility of perforation or bleeding that may require surgical intervention. The patient understood the risks and was in agreement with the plan. ? PROCEDURE: After informed consent was obtained by the patient, the patient was ? transferred to the Operating Room and was placed in the supine position.? After successful induction of IV sedation, a mouth block was inserted and the patient was placed in the left lateral decubitus position. An upper endoscopy was performed next, the oropharynx and esophagus appeared within the normal limits. There was no hiatal hernia. The z-line was irregular with tongues of gastric mucosa protruding to more than 75% circumference of the esophagus. Two biopsies were obtained from the distal esohagus 2-3 cm proximal to the GE junction and two additional biopsies from the GE junction. The sleeve was entered. There was a very large proximal chamber 3-4 times the normal expected lumen of a sleeve which was ending into a much more narrow distal sleeve with the expected caliber of a post-sleeve stomach. There was no real stenosis but the uneven calibers of the proximal and distal segment of the sleeve created a functional narrowing which is the cause of the patient's severe GERD and aspiration pneumonia.. There was no gastritis. There was no stricture or ulcer. Biopsies were obtained from the proximal sleeve as well as the distal antrum. No significant bleeding was noted from any of the biopsy sites. The scope was then advanced into the duodenum which appeared to be normal as well. At that point the duodenum ?and the sleeve were decompressed and the scope was withdrawn from the patient's mouth. The patient extubated and was transferred in stable condition to the Recovery Room for further care. I was present and performed all steps of the procedure. There were no residents to assist with this case. Paramjit Sharpe M.D., Ph.D. Surgeon: Oskar Sharpe MD Anesthesia: MAC Was an Leasing Assistant used for this Procedure?: No Estimated blood loss (mL): 0 IV fluids (mL): 400 Urine output (mL): 0 (No Greenberg to record output) Pathology: other (1) antrum x1, 2) proximal sleeve/gastric fundus x1, 3) EGJ x2, 4) distal esophagus x2) Condition: stable Disposition: PACU
[2023-08-23 07:40] LABS: Glucose, Whole Blood 116 mg/dL (60-115)
[2023-08-23 08:05] VITALS: BP 106/55; PULSE 67; RESP 14; TEMP 36.1; O2SAT 96
[2023-08-23 08:20] VITALS: BP 107/52; PULSE 62; RESP 18; TEMP 36.1; O2SAT 98
== END 2023-08-23 09:07 | disposition home or self-care (01) ==
PROVIDERS: PCP Internal Medicine; Visit Provider Surgery
PROC: 0DJ08ZZ Inspection of Upper Intestinal Tract, Via Natural or Artificial Opening Endoscopic (ICD-10-PCS; CPT 43235; principal; 2023-08-23 07:30)
DX: K21.9 Gastro-esophageal reflux disease without esophagitis (principal); Z98.84 Bariatric surgery status; J69.0 Pneumonitis due to inhalation of food and vomit; Z90.3 Acquired absence of stomach [part of]; K22.89 Other specified disease of esophagus; K20.80 Other esophagitis without bleeding; E66.01 Morbid (severe) obesity due to excess calories; Z68.37 Body mass index [BMI] 37.0-37.9, adult; I10 Essential (primary) hypertension; G62.9 Polyneuropathy, unspecified; Z88.2 Allergy status to sulfonamides; Z88.5 Allergy status to narcotic agent; Z88.8 Allergy status to other drugs, medicaments and biological substances; Z87.891 Personal history of nicotine dependence
CPT/HCPCS: 43239; 82947; 88305; 88313; 88342; 94640; J2250; J2704

== ENCOUNTER → 2023-08-23 07:02 | Outpatient (BNV) | payer OTHER, SELFPAY | PROVIDERS: PCP Internal Medicine; Visit Provider Surgery | DX: K21.00 Gastro-esophageal reflux disease with esophagitis, without bleeding (principal); K31.89 Other diseases of stomach and duodenum | CPT/HCPCS: 43239 ==

== ENCOUNTER 2023-09-05 08:30 | Outpatient (REF) | payer OTHER, SELFPAY ==
--- NOTE | ~2023-09-05 | US_ITS ---
EXAMINATION: US COMPLETE ABDOMEN WITH LIVER ELASTOGRAPHY CLINICAL INFORMATION: Obesity. COMPARISON: None available. TECHNIQUE: Real-time imaging of the abdominal viscera. Noninvasive ultrasound liver fibrosis assessment is performed using Shahrzad ElastPQ point quantification shear wave elastography (2D-SWE) with a C5-2 MHz transducer. Multiple elastography samples are obtained. FINDINGS: PANCREAS: The visualized portions of the pancreas are unremarkable but most of the gland is obscured by bowel gas. ABDOMINAL AORTA: The proximal, middle, and distal aortic segments are normal in caliber. INFERIOR VENA CAVA: Visualized portions are normal. LIVER: The liver demonstrates normal in contour, but has increased echogenicity consistent with hepatic steatosis. No focal lesion or intrahepatic biliary duct dilatation. The right lobe measures 16.7 cm in length. The left lobe measures 18.7 cm in length. Portal flow is towards the liver (hepatopetal). Shear wave liver elastography median stiffness is 1.34 m/s (reference: normal median stiffness is 1.3 m/s or less). IQR/median stiffness to assess sampling precision is 0.05 (reference: good quality data set is IQR/median stiffness of 0.15 or less). GALLBLADDER: Normal. The gallbladder is physiologically distended without evidence of stones, sludge, polyps, wall thickening or pericholecystic fluid. COMMON BILE DUCT: Normal in caliber measuring 0.4 cm in diameter. RIGHT KIDNEY: Normal. No hydronephrosis. No renal calculi or focal parenchymal lesions. The kidney measures 11.5 cm in maximum dimension. LEFT KIDNEY: Normal. No hydronephrosis. No renal calculi or focal parenchymal lesions. The kidney measures 11.2 cm in maximum dimension. SPLEEN: The spleen is minimally prominent measuring 12.2 cm in maximum dimension. FREE FLUID: None. IMPRESS OBESITY ION: 1. Hepatic steatosis. 2. Liver elastography: In the absence of other known clinical signs, measurements rule out compensated advanced chronic liver disease. If there are known clinical signs, further testing may be needed for confirmation. REFERENCE: Society of Radiologists in Ultrasound Liver Stiffness Thresholds (2020): LIVER STIFFNESS THRESHOLDS: *Liver Stiffness equal or less than 1.3 m/s: High probability of being normal. *Liver Stiffness less than 1.7 m/s: In the absence of other known clinical signs, rules out compensated advanced chronic liver disease. *Liver Stiffness 1.7-2.1 m/s: Suggestive of compensated advanced chronic liver disease but need further test for confirmation. *Liver Stiffness over 2.1 m/s: Rules in compensated advanced chronic liver disease. *Liver Stiffness over 2.4 m/s: Suggestive of clinically significant portal hypertension. QUALITY OF DATA SET: *IQR/Median value equal or less than 0.15 implies a quality data set. *IQR/Median value over 0.15 implies a poor quality data set. SIGNIFICANT CHANGE FROM PRIOR EXAM: Significant change if liver stiffness measurement is 10% or greater from prior exam. OTHER CONSIDERATIONS: The stage of liver fibrosis may be overestimated in the setting of acute hepatitis, liver inflammation, elevated liver function tests, hepatic vascular congestion, obstructive cholestasis, non-fasting state, and infiltrative diseases such as amyloidosis and lymphoma. In some patients with NAFLD, the liver stiffness thresholds for compensated advanced chronic liver disease may be lower. In causes other than viral hepatitis and NAFLD, liver stiffness thresholds are not well established.
== END 2023-09-05 08:31 | disposition home or self-care (01) ==
LOC: HO.US 08:30
PROVIDERS: PCP Internal Medicine; Visit Provider Surgery
DX: E66.9 Obesity, unspecified (principal); Z68.37 Body mass index [BMI] 37.0-37.9, adult; I10 Essential (primary) hypertension; K21.9 Gastro-esophageal reflux disease without esophagitis
CPT/HCPCS: 76700; 76981

== ENCOUNTER 2023-09-15 07:47 | Outpatient (AMB) | payer OTHER, SELFPAY ==
--- NOTE | 2023-09-15 08:34 | A.OFFVIS_ITS ---
VS Expanded 09/15/23 08:43 Height 5 ft 7 in Weight 221 lb 2 oz BMI 34.6 Body Fat % 46.4 Body Fat Mass 102.6 Fat Free Mass 118.4 Visceral Fat Rating 16 Body Water % 36.8 Body Water Mass 81.4 Basal Metabolic Rate/Score 1,530 Intake Visit Reasons: TV Follow Up SWL Allergies morphine Allergy (Intermediate, Verified 08/23/23 06:52) Hallucinations Sulfa (Sulfonamide Antibiotics) Adverse Reaction (Severe, Verified 08/23/23 06:52) Anaphylaxis ezetimibe Adverse Reaction (Intermediate, Verified 08/23/23 06:52) Diarrhea HPI HPI TV Follow Up SWL: Details: Start time: 8.20am, End time: 8.47am ?I spent 22 minutes speaking with the patient on the phone plus an additional 5 minutes reviewing and updating records for a total of 27 minutes HPI Comments Details: Overall weight loss: 17.8lbs, or 7.45% TBWL She will have a C3 spinal surgery for a nerve injury next week Is doing 2 Celebrate Rebuild protein shakes (1 scoop each in almond milk), 2 Celebrate protein bars and one meal (6 forks of protein and 6 forks of salad or vegetables). Exercise: doing physical therapy PFSH Medical History Peripheral neuropathy Sleep apnea Thyroid disease Immunocompromised state due to drug therapy Dyslipidemia Diabetes Bipolar 2 disorder Bipolar 1 disorder Neuropathy Hypothyroidism GERD (gastroesophageal reflux disease) Anxiety Depression Asthma Psoriatic arthritis Hyperlipidemia Hypertension Sleep apnea treated with continuous positive airway pressure (CPAP) Obesity Surgical History Hx of vitrectomy Hx of blepharoplasty Hx of abdominal surgery Hx of breast reduction, elective Hx of spinal surgery History of gastric surgery Hx of discectomy Hx of hysterectomy, total History of lumpectomy History of bladder suspension procedure Hx of section History of facial surgery Social History (Updated 07/19/23 @ 08:51 by Olga Wang CMA) Patient Tobacco Use Status: Former Tobacco user Quit Date: 1988 Tobacco use type: Cigarette Years Smoked: 11 Advance Directives Date on File: 08/18/23 Telehealth Telehealth Telehealth Platform: Telephone Location of provider rendering services: practice address Location of patient: address on file Patient Identification confirmed using: Name, : Yes Telehealth method: voice only Patient verbally consented to treatment: Yes Patient verbally consented to billing insurance company: Yes Patient informed of any privacy concerns related to visit: Yes Minutes spent on Phone/Video with Pt.: 27 Assessment & Plan Assessment & Plan (1) Obesity: Code(s): E66.9 - Obesity, unspecified Category: Medical Qualifiers: Obesity type: due to excess calories Obesity classification: adult class 2 (BMI 35 - 39.9) Serious obesity comorbidity presence: with serious comorbidity Body mass index: BMI 37.0-37.9 Qualified Code(s): E66.01 - Morbid (severe) obesity due to excess calories; Z68.37 - Body mass index [BMI] 37.0- 37.9, adult Plan: 1. Continue present diet plan of 2 Celebrate Rebuild protein shakes (1 scoop each in almond milk), 2 Celebrate protein bars and one meal (6 forks of protein and 6 forks of salad or vegetables). 2. Continue to send me weight measurements weekly on Mondays
[2023-09-15 08:43] VITALS: BMI 34.6
== END 2023-09-15 08:48 | disposition home or self-care (01) ==
LOC: HO.HBS 07:47
PROVIDERS: PCP Internal Medicine; Visit Provider Surgery
DX: E66.01 Morbid (severe) obesity due to excess calories (principal); Z68.37 Body mass index [BMI] 37.0-37.9, adult
CPT/HCPCS: 99213

== ENCOUNTER → 2023-09-15 07:47 | Outpatient (BNVA) | payer OTHER, SELFPAY | PROVIDERS: PCP Internal Medicine; Visit Provider Surgery ==

== ENCOUNTER → 2023-10-16 08:11 | Outpatient (BNVA) | payer OTHER, SELFPAY | PROVIDERS: PCP Internal Medicine; Visit Provider Surgery ==